=== PATIENT | male | born 1995 | race Caucasian/White ===

== ENCOUNTER 2017-12-13 16:38 | Emergency (ER) | payer OTHER ==
[~2017-12-13] VITALS: Ht 172.7 cm; Wt 81.7 kg
[2017-12-13 16:40] VITALS: BP 153/114
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
== END 2017-12-13 17:53 | disposition home or self-care (01) ==
LOC: ER 16:38
DX: R21 Rash and other nonspecific skin eruption (principal)
CPT/HCPCS: 99281